=== PATIENT | female | born 1965 | race Caucasian/White ===

== ENCOUNTER 2024-02-12 20:08 | Emergency (ER) | payer MEDICAID, SELFPAY ==
[2024-02-12 20:15] VITALS: BP 131/82; PULSE 66; TEMP 36.9; O2SAT 99; BMI 42.4
--- NOTE | 2024-02-12 20:19 | XR_ITS ---
The [address] [address] Patient Name: ELVIN LEWIS MRN: [id number] date: 1965 Sex: F Assigned Patient Location: ER Current Patient Location: Accession/Order Number: [id number] Exam Date: 02/12/2024 20:42 Report Date: 02/12/2024 23:00 At the request of: DIEGO SMITH Procedure: XR hand LT min 3V EXAM: PLAIN FILM OF THE HAND LEFT HISTORY: Pain. TECHNIQUE: 3 views of the hand are submitted for review. COMPARISON: None FINDINGS: No acute displaced fracture. Bone mineralization demonstrate periarticular osteopenia. Joint spaces are maintained. Soft tissues are edematous, greatest overlying the dorsum of the second and third metatarsal carpal phalangeal joint. XR/XR hand LT min 3V IMPRESSION: 1. Soft tissue swelling. 2. No acute displaced fracture. 3. Periarticular osteopenia. If there is any clinical concern for RSD, reflex sympathetic dystrophy, three-phase bone scan as an outpatient would help better delineate. Electronically authenticated by: SAMI TO Date: 02/12/2024 23:00
--- NOTE | 2024-02-12 20:32 | ED.UPPEXIN1 ---
Documented by User: PIERRE Paz 02/12/24 20:53 HPI HPI - Extremity Injury (Upper) General Chief Complaint: Extremity Problem, Nontraumatic Stated Complaint: UE INJURY Time Seen by Provider: 02/12/24 20:13 Source: patient Mode of arrival: walk-in Limitations: no limitations History of Present Illness HPI narrative: Patient is a 58-year-old female who presents to the emergency department for bruising and swelling over the third metacarpal joint of the dorsum of the left hand. She denies any mechanism of injury or trauma and patient and her were concerned because they did not know what caused the bruising. She denies any recent phlebotomy, open wounds or drainage. No medications prior to arrival. Related Data Home Medications ?Medication ?Instructions ?Recorded ?Confirmed alprazolam 0.25 mg tablet mg 02/12/24 lamotrigine 200 mg tablet mg 02/12/24 lithium carbonate 300 mg mg PO 02/12/24 tablet,extended release losartan 50 mg tablet mg 02/12/24 Allergies Allergy/AdvReac Type Severity Reaction Status Date / Time No Known Drug Allergies Allergy Verified 02/12/24 20:18 Opioid HPI Opioid Management Most Recent Pain and Opioid Data: No Data to Display Review of Systems ROS Constitutional Denies: fever or chills Ears, nose, mouth, and throat Denies: throat pain or nasal congestion Cardiovascular Denies: chest pain Respiratory Denies: shortness of breath or cough Gastrointestinal Denies: nausea or vomiting Musculoskeletal Denies: back pain or neck pain Integumentary/Breast Reports: rash Neurological Denies: numbness in extremities or weakness in extremities Hematologic/Lymphatic Denies: easy bruising or easy bleeding Exam Narrative Exam Narrative: Gen.: Awake, alert, in no distress Head: Normocephalic, atraumatic ENT: Moist mucous membranes Respiratory: No respiratory distress Extremities: Normal movement of the fingers of the left hand, dorsum of the hand with ecchymosis over the third metacarpal joint. Skin over the knuckle is minimally erythematous, no raised areas or fluctuance. No warmth. No red streaking. Psych: Normal mood and affect Neuro: No focal neuro deficit Skin: Warm, dry, intact Constitutional Vital Signs, click to edit/add: Last Vital Signs Temp 98.4 F 02/12/24 20:15 Pulse 66 02/12/24 20:15 Resp 16 02/12/24 20:15 BP 131/82 02/12/24 20:15 Pulse Ox 99 02/12/24 20:15 O2 Del Method Room Air 02/12/24 20:15 Course Vital Signs Vital signs: Vital Signs Temperature 98.4 F 02/12/24 20:15 Pulse Rate 66 02/12/24 20:15 Respiratory Rate 16 02/12/24 20:15 Blood Pressure 131/82 02/12/24 20:15 Pulse Oximetry 99 02/12/24 20:15 Oxygen Delivery Method Room Air 02/12/24 20:15 Temperature 98.4 F 02/12/24 20:15 Pulse Rate 66 02/12/24 20:15 Respiratory Rate 16 02/12/24 20:15 Blood Pressure 131/82 02/12/24 20:15 Pulse Oximetry 99 02/12/24 20:15 Oxygen Delivery Method Room Air 02/12/24 20:15 MDM - Extremity Injury (Upper) MDM Narrative Medical decision making narrative: 2052: X-rays are pending. Case is turned over to attending physician for disposition at this time. Patient declined pain medication in the ER. SHARED APC VISIT, PHYSICIAN ATTESTATION: [id number] I performed a substantive part of the MDM during the patient?s E/M visit. I personally evaluated and examined the patient. I personally made or approved the documented management plan and acknowledge its risk of complications. Medical Records Attestation: I reviewed the patient's medical records. Discharge Plan Discharge Chief Complaint: Extremity Problem, Nontraumatic Clinical Impression: Ecchymosis Patient Disposition: Home, Self-Care Time of Disposition Decision: 21:20 Prescriptions / Home Meds: No Action losartan 50 mg tablet lamotrigine 200 mg tablet lithium carbonate 300 mg tablet extended release PO alprazolam 0.25 mg tablet Print Language: Marshallese Instructions: Ecchymosis (ED) Referrals: SONALI THAKKAR [Primary Care Provider] - 1 week Documented by User: Diogenes Dent 02/12/24 21:20 HPI HPI - Extremity Injury (Upper) General Chief Complaint: Extremity Problem, Nontraumatic Stated Complaint: UE INJURY Time Seen by Provider: 02/12/24 20:13 Related Data Home Medications ?Medication ?Instructions ?Recorded ?Confirmed alprazolam 0.25 mg tablet mg 02/12/24 lamotrigine 200 mg tablet mg 02/12/24 lithium carbonate 300 mg mg PO 02/12/24 tablet,extended release losartan 50 mg tablet mg 02/12/24 Allergies Allergy/AdvReac Type Severity Reaction Status Date / Time No Known Drug Allergies Allergy Verified 02/12/24 20:18 Opioid HPI Opioid Management Most Recent Pain and Opioid Data: No Data to Display Exam Constitutional Vital Signs, click to edit/add: Last Vital Signs Temp 98.4 F 02/12/24 20:15 Pulse 66 02/12/24 20:15 Resp 16 02/12/24 20:15 BP 131/82 02/12/24 20:15 Pulse Ox 99 02/12/24 20:15 O2 Del Method Room Air 02/12/24 20:15 Course Vital Signs Vital signs: Vital Signs Temperature 98.4 F 02/12/24 20:15 Pulse Rate 66 02/12/24 20:15 Respiratory Rate 16 02/12/24 20:15 Blood Pressure 131/82 02/12/24 20:15 Pulse Oximetry 99 02/12/24 20:15 Oxygen Delivery Method Room Air 02/12/24 20:15 Temperature 98.4 F 02/12/24 20:15 Pulse Rate 66 02/12/24 20:15 Respiratory Rate 16 02/12/24 20:15 Blood Pressure 131/82 02/12/24 20:15 Pulse Oximetry 99 02/12/24 20:15 Oxygen Delivery Method Room Air 02/12/24 20:15 MDM - Extremity Injury (Upper) MDM Narrative Medical decision making narrative: 2052: X-rays are pending. Case is turned over to attending physician for disposition at this time. Patient declined pain medication in the ER. Attending physician note = patient was seen and examined after I looked at the patient's x-rays. I do not see any evidence of acute bony abnormality. The exam is consistent with a bruise to this area and I do not see any evidence of abscess formation or sign of infection at this time. Patient was cautioned to return to the ED if she developed streaking, markedly increased swelling, increased pain or any other worrisome symptoms. At this time I recommended that she apply ice to the area, take Tylenol and ibuprofen for any discomfort. SHARED APC VISIT, PHYSICIAN ATTESTATION: [id number] I performed a substantive part of the MDM during the patient?s E/M visit. I personally evaluated and examined the patient. I personally made or approved the documented management plan and acknowledge its risk of complications. Imaging Data xr hand: Attestation: I personally reviewed and interpreted this imaging study as follows: My impression: NAD Discharge Plan Discharge Chief Complaint: Extremity Problem, Nontraumatic Clinical Impression: Ecchymosis Patient Disposition: Home, Self-Care Time of Disposition Decision: 21:20 Prescriptions / Home Meds: No Action losartan 50 mg tablet lamotrigine 200 mg tablet lithium carbonate 300 mg tablet extended release PO alprazolam 0.25 mg tablet Print Language: Marshallese Instructions: Ecchymosis (ED) Referrals: SONALI THAKKAR [Primary Care Provider] - 1 week
== END 2024-02-12 21:34 | disposition home or self-care (01) ==
PROVIDERS: Emergency Provider Emergency Medicine; PCP Family Medicine
DX: R58 Hemorrhage, not elsewhere classified (principal)
CPT/HCPCS: 73130; 99283